=== PATIENT | female | born 1975 | race American Indian/Alaskan Native ===

== ENCOUNTER 2017-11-12 08:59 | Outpatient (CLI) | payer OTHER ==
--- NOTE | 2017-11-12 21:36 | XRay Report ---
FINAL REPORT EXAM: XR SPINE LUMBOSACRAL 2-3V HISTORY: MENTALLY DISTURBED,HIGH BLOOD PRESSURE,STROKE . TECHNIQUE: AP, lateral and coned-down views of the lumbar spine PRIORS: None. FINDINGS: The vertebral body heights are well maintained. Mild disc space narrowing at L5-S1 is present. The alignment is normal. No evidence for spondylolysis or spondylolisthesis is seen. Bilateral facet joint degenerative changes at L5-S1 are noted. Pedicles are intact bilaterally at all levels. The paraspinal soft tissues demonstrates surgical clips in right upper quadrant and paraspinal region. IMPRESSION: No acute abnormality in the lumbar spine. Degenerative disc changes at L5-S1.
--- NOTE | 2017-11-12 21:37 | XRay Report ---
FINAL REPORT EXAM: XR SPINE THORACIC 2V HISTORY: MENTALLY DISTURBED,HIGH BLOOD PRESSURE,STROKE,KNEE REPLACEMENT TECHNIQUE: AP and lateral views of the thoracic spine. PRIORS: None. FINDINGS: The vertebral body heights and disc spaces are well maintained. Large osteophytes are present anteriorly from T9 through T12. The alignment is normal. Pedicles are intact bilaterally at all levels. The paraspinal soft tissues are unremarkable. IMPRESSION: No acute abnormality in the thoracic spine.
== END 2017-11-12 09:00 | disposition home or self-care (01) ==
LOC: XRAY 08:59
PROVIDERS: ATTEND Internal Medicine
DX: M51.37 Other intervertebral disc degeneration, lumbosacral region (principal); M25.78 Osteophyte, vertebrae; F99 Mental disorder, not otherwise specified; I10 Essential (primary) hypertension; I63.9 Cerebral infarction, unspecified; Z96.659 Presence of unspecified artificial knee joint
CPT/HCPCS: 72070; 72100

== ENCOUNTER 2021-04-22 17:30 | Emergency (ER) | payer OTHER ==
[2021-04-22 17:42] VITALS: BP 151/98
--- NOTE | 2021-04-22 19:57 | XRay Report ---
PA chest with RIBS-4 total views INDICATION: MAIN. Right chest pain after falling in the shower COMPARISON: None. IMPRESSION: No acute osseous abnormality. Clear lungs with normal heart size. Signer Name: Jerrell Sepulveda MD Signed: 04/22/2021 7:52 PM Workstation Name: [email or web address]
--- NOTE | 2021-04-22 20:39 | Event Note ---
ED Screening Note Date of service: 04/22/21 Time: 20:36 ED Screening Note: 46-year-old female patient presents to the emergency department with complaints of traumatic right chest wall, right flank, and right sided abdominal pain status post mechanical fall. Patient states she accidentally fell in the shower last night and landed on her right side. Patient is not anticoagulated. States she is unable to walk due to the pain in her chest and abdomen. General: Awake, appropriately interactive. Agitated, uncomfortable, yelling in pain. Neck: Supple. Full range of motion intact. Cardiovascular: Normal peripheral perfusion. Pulmonary: No respiratory distress. Right anterolateral chest wall tenderness. No crepitus. No overlying ecchymosis. Abdomen: Right flank, right upper quadrant, right lower quadrant tenderness. Skin: No apparent rashes or lesions. Neurological: No facial asymmetry. Speech is clear. Follows commands. Patient is alert and oriented. Musculoskeletal: Moves all four extremities spontaneously with normal range of motion. Psych: Cooperative. Appropriate mood and affect. I have greeted and performed a focused rapid initial assessment of this patient. A comprehensive ED assessment and evaluation of the patient, analysis of all test results, and completion of the medical decision-making process will be conducted by additional ED providers. This initial assessment/diagnostic orders/clinical plan/treatment(s) is/are subject to change based on patients h ealth status, clinical progression and re-assessment. Further treatment and workup at subsequent clinical provider's discretion. Patient/guardian urged not to elope from the ED as their condition may be serious if not clinically assessed and managed.
[2021-04-22 20:54] LABS: Basophils % (Auto) 0.7 % (0.0-1.8); Eosinophils # (Auto) 0.1 K/mm3 (0.0-0.4); Eosinophils % (Auto) 0.8 % (0.0-4.3); Hematocrit 39.2 % (30.3-42.9); Lymphocytes # (Auto) 2.1 K/mm3 (1.2-5.4); Lymphocytes % (Auto) 28.8 % (13.4-35.0); Mean Corpuscular HGB Conc 33 % (30-34); Mean Corpuscular Volume 91 fl (79-97); Monocytes # (Auto) 0.4 K/mm3 (0.0-0.8); Monocytes % (Auto) 6.1 % (0.0-7.3); Platelet Count 318 K/mm3 (140-440); Red Blood Count 4.31 M/mm3 (3.65-5.03); Red Cell Distribution Width 15.9 % (13.2-15.2)
[2021-04-22] MEDS ORDERED: oxyCODONE /ACETAMINOPHEN 5-325MG TAB PO ONE (21:14)
[2021-04-22] MEDS ORDERED: ONDANSETRON 4 MG ODT TAB PO ONE (21:14)
[2021-04-22 21:15] LABS: Alanine Aminotransferase 21 units/L (7-56); Albumin 4.2 g/dL (3.9-5); Blood Urea Nitrogen 13 mg/dL (7-17); Hemolysis Index 73
[2021-04-22 21:29] LABS: BUN/Creatinine Ratio 22
--- NOTE | 2021-04-22 23:20 | Emergency Department Report ---
ED Fall HPI - General Chief Complaint: Fall Stated Complaint: RT RIB PAIN/FALL Time Seen by Provider: 04/22/21 19:53 Source: patient, EMS Mode of arrival: Wheelchair - History of Present Illness Initial Comments: Patient is a 46-year-old AA female patient with past medical history of morbid obesity and hypertension who presents to the emergency department with complaints of acute onset persistent severe right lateral chest wall, right flank, and right flank abdominal pain and right hip pain after she slipped on a wet bathtub and fell down landing on her right side 24 hours ago. Patient states that she is unable to bear weight on her right side because of worsening pain. Patient states that she is not on any anticoagulant. Patient denies dizziness, syncope, seizures, neck pain, head or neck injuries, loss of consciousness, nausea and vomiting, change in vision, shortness of breath, hematuria, urinary or bowel incontinence, numbness and tingling or weakness of upper and lower extremities bilaterally. MD Complaint: fall (slipped and fell down on the bath tub), other (right lateral rib pain; right flank pain, right hip and lower back) -: Sudden, hour(s) (24) Fall From: standing When Fall Occurred: 24 hours [employer] CONSULT[employer] Fall Witnessed: yes, by family Place Fall Occurred: home Loss of Consciousness: none Prolonged Down Time?: no Symptoms Prior to Fall: none Location: chest (right lateral ribs), back (lower), abdomen (right flank) Severity: severe Severity scale (0 -10): 9 Quality: sharp, aching Context: tripped/slipped Associated Symptoms: denies, chest paint (right lateral). denies: headache, neck pain, numbness, weakness, shortness of breath, abdominal pain, hematuria, unable to walk, lightheaded, vertigo, confusion - Related Data Previous Rx's Medication Instructions Recorded Last Taken Type Baclofen 20 mg PO Q12H PRN #20 tablet 04/23/21 Unknown Rx Ibuprofen [Motrin] 800 mg PO Q8HR PRN #30 tablet 04/23/21 Unknown Rx traMADoL [Ultram] 50 mg PO Q6HR PRN #12 tablet 04/23/21 Unknown Rx Allergies Allergy/AdvReac Type Severity Reaction Status Date / Time No Known Allergies Allergy Verified 04/22/21 17:32 ED Review of Systems ROS: Stated complaint: RT RIB PAIN/FALL Other details as noted in HPI Constitutional: denies: chills, fever Eyes: denies: eye pain, eye discharge, vision change ENT: denies: ear pain, throat pain Respiratory: denies: cough, shortness of breath, wheezing Cardiovascular: denies: chest pain, palpitations Endocrine: no symptoms reported Gastrointestinal: denies: abdominal pain, nausea, diarrhea Genitourinary: denies: urgency, dysuria, discharge Musculoskeletal: back pain (lower pain), arthralgia (right hip, ; right lateral chest wall), myalgia. denies: joint swelling Skin: denies: rash, lesions, change in color, change in hair/nails Neurological: denies: headache, weakness, paresthesias Psychiatric: denies: anxiety, depression Hematological/Lymphatic: denies: easy bleeding, easy bruising ED Past Medical Hx - Past Medical History Hx Hypertension: Yes Additional medical history: morbid obesity - Surgical History Hx Cholecystectomy: Yes (GALL STONES) Additional Surgical History: KNEE/ ANKLE - Social History Smoking Status: Current Every Day Smoker Substance Use Type: None - Medications Home Medications: Home Medications Medication Instructions Recorded Confirmed Last Taken Type Baclofen 20 mg PO Q12H PRN #20 tablet 04/23/21 Unknown Rx Ibuprofen [Motrin] 800 mg PO Q8HR PRN #30 tablet 04/23/21 Unknown Rx traMADoL [Ultram] 50 mg PO Q6HR PRN #12 tablet 04/23/21 Unknown Rx ED Physical Exam - General Limitations: No Limitations General appearance: alert, in no apparent distress, obese - Head Head exam: Present: atraumatic, normocephalic, normal inspection - Eye Eye exam: Present: normal appearance, PERRL, EOMI Pupils: Present: normal accommodation - ENT ENT exam: Present: normal exam, normal orophraynx, mucous membranes moist, TM's normal bilaterally, normal external ear exam - Neck Neck exam: Present: normal inspection, full ROM. Absent: tenderness - Respiratory Respiratory exam: Present: normal lung sounds bilaterally, chest wall tenderness (Palpable reproducible right lateral). Absent: respiratory distress, wheezes ( rib pain), rales, rhonchi, accessory muscle use, decreased breath sounds, prolonged expiratory - Cardiovascular Cardiovascular Exam: Present: regular rate, normal rhythm, normal heart sounds. Absent: systolic murmur, diastolic murmur, rubs, gallop - GI/Abdominal GI/Abdominal exam: Present: soft, tenderness (Palpable right flank and right lower quadrant tenderness), normal bowel sounds. Absent: guarding, rebound, hyperactive bowel sounds, organomegaly - Extremities Exam Extremities exam: Present: normal inspection, full ROM, tenderness, normal capillary refill, other (Palpable right hip tenderness with limited range of motion due to pain) - Back Exam Back exam: Present: normal inspection, full ROM, tenderness (Palpable lumbosacral paraspinal musculoskeletal tenderness), muscle spasm, paraspinal tenderness. Absent: CVA tenderness (L), vertebral tenderness, rash noted - Neurological Exam Neurological exam: Present: alert, oriented X3, CN II-XII intact, normal gait, reflexes normal - Psychiatric Psychiatric exam: Present: normal affect, normal mood - Skin Skin exam: Present: warm, dry, intact, normal color. Absent: rash ED Course Vital Signs 04/22/21 17:33 Temperature 97.9 F Pulse Rate 98 H Respiratory 20 Rate Blood Pressure 151/98 O2 Sat by Pulse 96 Oximetry ED Medical Decision Making - Lab Data Result diagrams: 04/22/21 20:41 04/22/21 20:41 - Radiology Data Radiology results: report reviewed, image reviewed [facility] [address] [place] [address] Cat Scan Report Signed Patient: ALETHA AYOUB MR#: [id number] : 1975 Acct:[id number] Age/Sex: 46 / F ADM Date: 04/22/21 Loc: ED Attending Dr: Ordering Physician: ALEJANDRA PATEL Date of Service: 04/22/21 Procedure(s): CT chest w con Accession Number(s): [id number] cc: ALEJANDRA PATEL CT CHEST WITH CONTRAST INDICATION / CLINICAL INFORMATION: MAIN. Right chest trauma TECHNIQUE: Axial CT images were obtained through the chest after 100 cc Omnipaque 300 milligrams percent IV contrast. All CT scans at this location are performed using CT dose reduction for ALARA by means of automated exposure control. COMPARISON: None available. FINDINGS: HEART: No significant abnormality. THORACIC AORTA: No significant abnormality. MEDIASTINUM and ARUNA: No significant abnormality. LUNGS: No acute air space or interstitial disease. PLEURA: No significant pleural effusion. No pneumothorax. ADDITIONAL FINDINGS: None. UPPER ABDOMEN: No significant abnormality. SKELETAL SYSTEM: No significant abnormality. IMPRESSION: 1. No significant abnormality. Signer Name: Charan Desir MD Signed: 04/23/2021 12:07 AM Workstation Name: [id number] Transcribed By: WG Dictated By: Charan Desir MD Electronically Authenticated By: Charan Desir MD Signed Date/Time: 04/23/216 DD/ TD/TT: [facility] [address] [place] [address] Cat Scan Report Signed Patient: ALETHA AYOUB MR#: [id number] : 1975 Acct:[id number] Age/Sex: 46 / F ADM Date: 04/22/21 Loc: ED Attending Dr: Ordering Physician: ALEJANDRA PATEL Date of Service: 04/22/21 Procedure(s): CT abdomen pelvis w con Accession Number(s): [id number] cc: ALEJANDRA PATEL CT ABDOMEN AND PELVIS WITH CONTRAST INDICATION / CLINICAL INFORMATION: MAIN. Trauma Right side TECHNIQUE: Axial CT images were obtained through the abdomen and pelvis after 100 cc Omnipaque 300 milligrams percent IV contrast. All CT scans at this location are performed using CT dose reduction for ALARA by means of automated exposure control. COMPARISON: None available. FINDINGS: Image quality is degraded secondary to patient body habitus LOWER CHEST: No significant abnormality. LIVER: No significant abnormality. GALLBLADDER: No significant abnormality. BILE DUCTS: No significant abnormality. PANCREAS: No significant abnormality. SPLEEN: No significant abnormality. ADRENALS: No significant abnormality. RIGHT KIDNEY and URETER: No significant abnormality. LEFT KIDNEY and URETER: No significant abnormality. STOMACH and SMALL BOWEL: No significant abnormality. COLON: No significant abnormality. APPENDIX: No significant abnormality. PERITONEUM: No free fluid. No free air. No fluid collection. LYMPH NODES: No significant adenopathy. AORTA and ARTERIES: No significant abnormality. IVC and VEINS: No significant abnormality. URINARY BLADDER: No significant abnormality. REPRODUCTIVE ORGANS: No significant abnormality. ADDITIONAL FINDINGS: None. SKELETAL SYSTEM: No significant abnormality. IMPRESSION: 1. No significant abnormality. Signer Name: Charan Desir MD Signed: 04/23/2021 12:10 AM Workstation Name: [id number] Transcribed By: WG Dictated By: Charan Desir MD Electronically Authenticated By: Charan Desir MD Signed Date/Time: 04/23/219 DD/ TD/TT: [facility] [address] [place] [address] XRay Report Signed Patient: ALETHA AYOUB MR#: [id number] : 1975 Acct:[id number] Age/Sex: 46 / F ADM Date: 04/22/21 Loc: ED Attending Dr: Ordering Physician: JOCELYN TORREZ Date of Service: 04/22/21 Procedure(s): XR ribs UNI w PA Chest 3+V RT Accession Number(s): [id number] cc: JOCELYN TORREZ Fluoro Time In Minutes: PA chest with RIBS-4 total views INDICATION: MAIN. Right chest pain after falling in the shower COMPARISON: None. IMPRESSION: No acute osseous abnormality. Clear lungs with normal heart size. Signer Name: Jerrell Sepulveda MD Signed: 04/22/2021 7:52 PM Workstation Name: [id number] Transcribed By: MARV Dictated By: Jerrell Sepulveda MD Electronically Authenticated By: Jerrell Sepulveda MD Signed Date/Time: 04/22/211951 DD/ 51 TD/TT: - Medical Decision Making This is a 46-year-old AA female patient with past medical history of morbid obesity and hypertension who presents to the emergency department with complaints of acute onset persistent severe right lateral chest wall, right flank, and right flank abdominal pain and right hip pain after she slipped on a wet bathtub and fell down landing on her right side 24 hours ago. Patient states that she is unable to bear weight on her right side because of worsening pain. Patient states that she is not on any anticoagulant. In the ED, patient is alert and oriented x3 and is not in any distress but appears to be in si gnificant pain, anxious and dramatic during the physical exam and occasionally uncooperative with the physical exam complaining more of pain. Patient was treated for pain in the ED and lab test results were reviewed and are all nonactionable. Right sided rib x-ray with chest x-ray showed no acute rib fracture local pleural effusion, pneumothorax or any cardiopulmonary abnormalities or pneumonitis. CT chest with contrast showed no acute abnormalities. Abdomen pelvis CT scan with contrast also showed no acute abnormalities. Based on the history and physical exam findings as well as imaging reports, patient symptoms are likely musculoskeletal injuries following the fall. On reevaluation, patient's pain is well controlled medication. Patient will discharge home on pain medications and muscle relaxants and advised to follow-up with her primary care physician in 5 to 7 days for reevaluation. Patient is advised return to the ED immediately if symptoms get worse. - Differential Diagnosis Rib fracture; chest contusion; back injury; hip fracture; hip contusion Critical care attestation.: If time is entered above; I have spent that time in minutes in the direct care of this critically ill patient, excluding procedure time. ED Disposition Clinical Impression: Spasm of muscle of lower back Contusion of right chest wall Qualifiers: Encounter type: initial encounter Qualified Code(s): S20.211A - Contusion of right front wall of thorax, initial encounter Contusion of right hip and thigh Qualifiers: Encounter type: initial encounter Qualified Code(s): S70.01XA - Contusion of right hip, initial encounter; S70.11XA - Contusion of right thigh, initial encounter Disposition: TO HOME OR SELFCARE Is pt being admited?: No Does the pt Need Aspirin: No Condition: Stable Instructions: Muscle Cramps and Spasms, [id number], Contusion, [id number], Back Injury Prevention, [id number], Rib Contusion Additional Instructions: All imaging reports were reviewed and are all nonactionable with no acute fractures or subluxations. All lab test results are unremarkable. Based on yo ur history and physical exam findings as well as imaging reports, the injury sustained are all musculoskeletal with no bony involvement. Therefore take medications with food, drink plenty of fluids and follow-up with your primary care physician in 5 to 7 days for reevaluation. Return to the ED immediately if symptoms get worse. Prescriptions: Baclofen 20 mg PO Q12H PRN #20 tablet PRN Reason: Muscle Spasm Ibuprofen [Motrin] 800 mg PO Q8HR PRN #30 tablet PRN Reason: Pain , Severe (7-10) traMADoL [Ultram] 50 mg PO Q6HR PRN #12 tablet PRN Reason: Pain Referrals: [facility] [Provider Group] - 3-5 Days Time of Disposition: 00:49 Print Language: SWEDISH
--- NOTE | 2021-04-23 00:12 | Cat Scan Report ---
CT CHEST WITH CONTRAST INDICATION / CLINICAL INFORMATION: MAIN. Right chest trauma TECHNIQUE: Axial CT images were obtained through the chest after 100 cc Omnipaque 300 milligrams percent IV cont rast. All CT scans at this location are performed using CT dose reduction for ALARA by means of autom ated exposure control. COMPARISON: None available. FINDINGS: HEART: No significant abnormality. THORACIC AORTA: No significant abnormality. MEDIASTINUM and ARUNA: No significant abnormality. LUNGS: No acute air space or interstitial disease. PLEURA: No significant pleural effusion. No pneumothorax. ADDITIONAL FINDINGS: None. UPPER ABDOMEN: No significant abnormality. SKELETAL SYSTEM: No significant abnormality. IMPRESSION: 1. No significant abnormality. Signer Name: Charan Desir MD Signed: 04/23/2021 12:07 AM Workstation Name: [id number]
--- NOTE | 2021-04-23 00:14 | Cat Scan Report ---
CT ABDOMEN AND PELVIS WITH CONTRAST INDICATION / CLINICAL INFORMATION: MAIN. Trauma Right side TECHNIQUE: Axial CT images were obtained through the abdomen and pelvis after 100 cc Omnipaque 300 milligrams pe rcent IV contrast. All CT scans at this location are performed using CT dose reduction for ALARA by means of automated exposure control. COMPARISON: None available. FINDINGS: Image quality is degraded secondary to patient body habitus LOWER CHEST: No significant abnormality. LIVER: No significant abnormality. GALLBLADDER: No significant abnormality. BILE DUCTS: No significant abnormality. PANCREAS: No significant abnormality. SPLEEN: No significant abnormality. ADRENALS: No significant abnormality. RIGHT KIDNEY and URETER: No significant abnormality. LEFT KIDNEY and URETER: No significant abnormality. STOMACH and SMALL BOWEL: No significant abnormality. COLON: No significant abnormality. APPENDIX: No significant abnormality. PERITONEUM: No free fluid. No free air. No fluid collection. LYMPH NODES: No significant adenopathy. AORTA and ARTERIES: No significant abnormality. IVC and VEINS: No significant abnormality. URINARY BLADDER: No significant abnormality. REPRODUCTIVE ORGANS: No significant abnormality. ADDITIONAL FINDINGS: None. SKELETAL SYSTEM: No significant abnormality. IMPRESSION: 1. No significant abnormality. Signer Name: Charan Desir MD Signed: 04/23/2021 12:10 AM Workstation Name: [id number]
== END 2021-04-23 01:15 | disposition home or self-care (01) ==
LOC: ED 17:30
DX: S20.211A Contusion of right front wall of thorax, initial encounter (principal); S70.01XA Contusion of right hip, initial encounter; S70.11XA Contusion of right thigh, initial encounter; M62.830 Muscle spasm of back; M54.5 Low back pain; I10 Essential (primary) hypertension; F17.200 Nicotine dependence, unspecified, uncomplicated; Z90.49 Acquired absence of other specified parts of digestive tract; Z79.899 Other long term (current) drug therapy; W01.0XXA Fall on same level from slipping, tripping and stumbling without subsequent striking against object, initial encounter; Y93.89 Activity, other specified; Y92.89 Other specified places as the place of occurrence of the external cause; Y99.8 Other external cause status
CPT/HCPCS: 36415; 71101; 71260; 74177; 80053; 85025; 99284; Q9967; Q0162

== ENCOUNTER 2021-05-07 06:39 | Emergency (ER) | payer MEDICAID, OTHER ==
[2021-05-07] MEDS ORDERED: fentaNYL 100 MCG/2 ML INJ IV ONE ×3 (09:35→17:00)
[2021-05-07] MEDS ORDERED: ONDANSETRON 4 MG/2 ML INJ IV ONE (09:35)
--- NOTE | 2021-05-07 09:41 | Emergency Department Report ---
HPI - General Chief Complaint: Abdominal Pain Time Seen by Provider: 05/07/21 09:04 - [facility] HPI: Room 39 The patient is a 46-year-old female present with a chief complaint of abdominal pain. The patient states her symptoms began 3 days ago with a constant "hurting" pain to the right side of her abdomen. Patient admits to nausea vomiting but denies diarrhea. Patient states she has had dysuria for the past 2 days but denies hematuria. Patient states she is uncertain if she is had a fever. Patient currently gives her pain score of 10/10. Patient arrived by EMS and is not driving ED Past Medical Hx - Past Medical History Previous Medical History?: Yes Hx Hypertension: Yes Additional medical history: morbid obesity - Surgical History Hx Cholecystectomy: Yes (GALL STONES) Additional Surgical History: KNEE/ ANKLE - Family History Family history: no significant - Social History Smoking Status: Current Some Day Smoker Substance Use Type: None (Denies illicit drug use) - Medications Home Medications: Home Medications Medication Instructions Recorded Confirmed Last Taken Type Baclofen 20 mg PO Q12H PRN #20 tablet 04/23/21 Unknown Rx Ibuprofen [Motrin] 800 mg PO Q8HR PRN #30 tablet 04/23/21 Unknown Rx traMADoL [Ultram] 50 mg PO Q6HR PRN #12 tablet 04/23/21 Unknown Rx HYDROcodone/APAP 5-325 [[place] 1 - 2 each PO Q6HR PRN #10 tablet 05/07/21 Unknown Rx 5/325] ED Review of Systems ROS: Stated complaint: ABD PAIN Other details as noted in HPI Constitutional: fever (?) Eyes: denies: eye pain ENT: denies: throat pain Respiratory: no symptoms reported Cardiovascular: denies: chest pain Endocrine: no symptoms reported Gastrointestinal: abdominal pain, nausea, vomiting. denies: diarrhea Genitourinary: dysuria. denies: hematuria Musculoskeletal: other (Right flank) Neurological: denies: headache Physical Exam - Physical Exam Vital Signs: Vital Signs 05/07/21 07:14 Temperature 97.6 F Pulse Rate 80 Respiratory 20 Rate Blood Pressure 103/61 O2 Sat by Pulse 98 Oximetry Physical Exam: GENERAL: The patient is well-developed well-nourished female lying on stretcher appearing man in moderate discomfort. [] HEENT: Normocephalic. Atraumatic. Extraocular motions are intact. Patient has moist mucous membranes. NECK: Supple. Trachea midline CHEST/LUNGS: Clear to auscultation. There is no respiratory distress noted. HEART/CARDIOVASCULAR: Regular. There is no tachycardia. There is no gallop rub or murmur. ABDOMEN: Abdomen is soft, with tenderness to palpation in the suprapubic, right lower quadrant and right upper quadrant. Patient has normal bowel sounds. There is no abdominal distention. SKIN: There is no rash. There is no edema. There is no diaphoresis. NEURO: The patient is awake, alert, and oriented. The patient is cooperative. The patient has no focal neurologic deficits. The patient has normal speech MUSCULOSKELETAL: There is pain of the right flank encompassing the mid to anterior axillary line. There is no evidence of acute injury. PELVIC: White discharge present with appearance of yeast ED Course Vital Signs 05/07/21 07:14 Temperature 97.6 F Pulse Rate 80 Respiratory 20 Rate Blood Pressure 103/61 O2 Sat by Pulse 98 Oximetry ED Medical Decision Making - Lab Data Result diagrams: 05/07/21 09:46 05/07/21 09:46 - Radiology Data Radiology results: report reviewed (CT abdomen pelvis), image reviewed (CT abdomen pelvis) [facility] [address] [place] [address] Cat Scan Report Signed Patient: ALETHA AYOUB MR#: [id number] : 1975 Acct:[id number] Age/Sex: 46 / F ADM Date: 05/07/21 Loc: ED Attending Dr: Ordering Physician: ASAEL WILSON MD Date of Service: 05/07/21 Procedure(s): CT abdomen pelvis w con Accession Number(s): [id number] cc: ASAEL WILSON MD CT ABDOMEN AND PELVIS WITH CONTRAST INDICATION / CLINICAL INFORMATION: Right-sided abdominal pain 100 ML OMNI 300 . TECHNIQUE: Axial CT images were obtained through the abdomen and pelvis following the administration of intravenous contrast. All CT scans at this location are performed using CT dose reduction for ALARA by means of automated exposure control. COMPARISON: CT abdomen/pelvis dated 04/22/2021. FINDINGS: LOWER CHEST: No significant abnormality. LIVER: No significant abnormality. GALLBLADDER: Surgically absent. PANCREAS: No significant abnormality. SPLEEN: No significant abnormality. ADRENALS: No significant abnormality. KIDNEYS / URETERS: No significant abnormality. URINARY BLADDER: No significant abnormality. REPRODUCTIVE ORGANS: No significant abnormality. STOMACH / SMALL BOWEL: No significant abnormality. COLON: No significant abnormality. APPENDIX: No significant abnormality. PERITONEUM: No free fluid. No free air. No fluid collection. LYMPH NODES: No significant adenopathy. AORTA / ARTERIES: No significant abnormality. IVC / VEINS: No significant abnormality. SKELETAL SYSTEM: No acute osseous abnormality. ADDITIONAL FINDINGS: None. IMPRESSION: 1. No acute abdominopelvic abnormality. Signer Name: Rm Silva MD Signed: 05/07/2021 12:55 PM Workstation Name: [id number] Transcribed By: SS Dictated By: RM SILVA Electronically Authenticated By: RM SILVA Signed Date/Time: 05/07/211254 DD/ 51 TD/TT: Print Cancel - Differential Diagnosis Pyelonephritis, appendicitis, colitis, peptic ulcer disease, pancreatitis Critical care attestation.: If time is entered above; I have spent that time in minutes in the direct care of this critically ill patient, excluding procedure time. ED Disposition Clinical Impression: Acute abdominal pain Disposition: DC-01 TO HOME OR SELFCARE Is pt being admited?: No Does the pt Need Aspirin: No Condition: Stable Instructions: Abdominal Pain (ED), Abdominal Pain, Adult, Pain Without a Known Cause Additional Instructions: Return to the emergency department should you develop worsening symptoms, inability to tolerate food or liquids, high fever or any other concerns Prescriptions: HYDROcodone/APAP 5-325 [[place] 5/325] 1 - 2 each PO Q6HR PRN #10 tablet PRN Reason: Pain Referrals: PRIMARY CARE, [Primary Care Provider] - 3-5 Days
[2021-05-07 09:58] LABS: Bilirubin,Urine NEG (Negative); Blood,Urine NEG (Negative); Color,Urine Yellow (Yellow); Mucus,Urine FEW /HPF; Protein,Urine <15 mg/dL mg/dL (Negative); Urobilinogen,Urine < 2.0 mg/dL (<2.0)
[2021-05-07 10:22] LABS: Basophils % (Auto) 0.2 % (0.0-1.8); Eosinophils # (Auto) 0.1 K/mm3 (0.0-0.4); Eosinophils % (Auto) 1.8 % (0.0-4.3); Hematocrit 37.5 % (30.3-42.9); Hemoglobin 12.5 gm/dl (10.1-14.3); Lymphocytes % (Auto) 36.3 % (13.4-35.0); Mean Corpuscular HGB Conc 33 % (30-34); Mean Corpuscular Volume 90 fl (79-97); Monocytes # (Auto) 0.4 K/mm3 (0.0-0.8); Monocytes % (Auto) 7.9 % (0.0-7.3); Platelet Count 307 K/mm3 (140-440); Red Blood Count 4.16 M/mm3 (3.65-5.03); Red Cell Distribution Width 15.8 % (13.2-15.2)
[2021-05-07 11:18] LABS: Alanine Aminotransferase 12 units/L (7-56); Albumin 4.2 g/dL (3.9-5); Blood Urea Nitrogen 10 mg/dL (7-17); Calcium 9.6 mg/dL (8.4-10.2); Hemolysis Index 0
[2021-05-07 11:19] LABS: BUN/Creatinine Ratio 20
--- NOTE | 2021-05-07 12:59 | Cat Scan Report ---
CT ABDOMEN AND PELVIS WITH CONTRAST INDICATION / CLINICAL INFORMATION: Right-sided abdominal pain 100 ML OMNI 300 . TECHNIQUE: Axial CT images were obtained through the abdomen and pelvis following the administration of intraven ous contrast. All CT scans at this location are performed using CT dose reduction for ALARA by means of automated exposure control. COMPARISON: CT abdomen/pelvis dated 04/22/2021. FINDINGS: LOWER CHEST: No significant abnormality. LIVER: No significant abnormality. GALLBLADDER: Surgically absent. PANCREAS: No significant abnormality. SPLEEN: No significant abnormality. ADRENALS: No significant abnormality. KIDNEYS / URETERS: No significant abnormality. URINARY BLADDER: No significant abnormality. REPRODUCTIVE ORGANS: No significant abnormality. STOMACH / SMALL BOWEL: No significant abnormality. COLON: No significant abnormality. APPENDIX: No significant abnormality. PERITONEUM: No free fluid. No free air. No fluid collection. LYMPH NODES: No significant adenopathy. AORTA / ARTERIES: No significant abnormality. IVC / VEINS: No significant abnormality. SKELETAL SYSTEM: No acute osseous abnormality. ADDITIONAL FINDINGS: None. IMPRESSION: 1. No acute abdominopelvic abnormality. Signer Name: Rm Silva MD Signed: 05/07/2021 12:55 PM Workstation Name: [id number]
[2021-05-07] MEDS ORDERED: FAMOTIDINE 20 MG/2 ML INJ IV ONE (15:22)
[2021-05-07 18:21] VITALS: BP 145/73
== END 2021-05-07 18:20 | disposition home or self-care (01) ==
LOC: ED 06:39
DX: R10.11 Right upper quadrant pain (principal); R10.31 Right lower quadrant pain; R11.2 Nausea with vomiting, unspecified; E66.8 Other obesity; I10 Essential (primary) hypertension; F17.200 Nicotine dependence, unspecified, uncomplicated; Z90.49 Acquired absence of other specified parts of digestive tract; Z98.890 Other specified postprocedural states; Z88.0 Allergy status to penicillin; Z88.8 Allergy status to other drugs, medicaments and biological substances; Z88.2 Allergy status to sulfonamides
CPT/HCPCS: 36415; 74177; 80053; 81001; 83690; 84703; 85025; 87210; 87591; 96374; 96375; 96376; 99284; J2405; J3010; Q9967